=== PATIENT | female | born 1995 | race Caucasian/White ===

== ENCOUNTER 2017-07-29 08:00 | Inpatient (IN) ==
[2017-07-29] MEDS ORDERED: miSOPROStol 25 MCG TABLET PO PRN (09:08)
[2017-07-29] MEDS ORDERED: Famotidine 20 MG/2 ML VIAL IVP PRN (09:09)
[2017-07-29] MEDS ORDERED: Naloxone 0.4 MG/ML INJ IVP PRN ×2 (09:09→13:14)
[2017-07-29] MEDS ORDERED: Metoclopramide 10 MG/2 ML VIAL IVP PRN (09:12)
[2017-07-29] MEDS ORDERED: D5% in 0.45% NACL 1,000 ML IVC ONE (09:22)
[2017-07-29] MEDS ORDERED: Lidocaine -MPF 1% 2 ML VIAL ONE (09:24)
[2017-07-29 09:48] LABS: Basophils % 0.2 %; Eosinophils # 0.1 K/mcL (0.0-0.6); Hematocrit 37.2 % (35.3-44.9); Hemoglobin 12.6 g/dL (11.5-15.4); Immature Granulocytes % 0.7 % (0-4); Lymphocytes % 16.4 %; Mean Corpuscular HGB Conc 33.9 g/dL (31.6-35.5); Mean Corpuscular Hemoglobin 29.6 pg (28.0-33.3); Mean Corpuscular Volume 87.3 fL (83.0-100.0); Mean Platelet Volume 11.5 fL (9.4-12.4); Monocytes # 0.9 K/mcL (0.0-1.3); Monocytes % 7.6 %; Neutrophils # 9.2 K/mcL (1.6-8.9); Platelet Count 267 K/mcL (140-400); Red Blood Count 4.26 M/mcL (3.82-4.97); Red Cell Distribution Width 12.4 % (11.5-14.5); Segmented Neutrophils % 74.1 %
[2017-07-29] MEDS ORDERED: D5% in 0.45% NACL 1,000 ML IVC SCH (10:00)
[2017-07-29 10:11] LABS: Amphetamine Screen,Urine Negative ng/mL (Cutoff=1000); Barbiturate Screen,Urine Negative ng/mL (Cutoff=200); Benzodiazepines Screen,Urine Negative ng/mL (Cutoff=200); Cannabinoid Screen,Urine Negative ng/mL (Cutoff = 50); Cocaine Screen,Urine Negative ng/mL (Cutoff= 300); Opiate Screen,Urine Negative ng/mL (Cutoff=300); Phencyclidine Screen,Urine Negative ng/mL (Cutoff=25)
--- NOTE | 2017-07-29 10:40 | OB Labor Progress Note ---
Date of Encounter: 07/29/17 Time of Encounter: 10:37 Labor Progress Note - Subjective Subjective: Pt states is comfortable at this time - Cervix Cervix: 2/50/-2 - Heart Tones Heart Tones: 130/moderate/+accels/-decels - [place]: occasional ctx - Interventions Interventions: Finney placed. - Plan Plan: Cytotec as per order GBS negative Nubain and epidural as desired anticipate
--- NOTE | 2017-07-29 10:45 | OB/GYN History & Physical ---
Date of Encounter: 07/29/17 Time of Encounter: 10:42 Assessment and Plan (1) 39 weeks gestation of Current visit: Yes Status: Acute (2) Elective induction of labor planned Current visit: Yes Status: Acute Cytotec Place Finney Nubain and epidural as desired Anticipate History of Present Illness Chief complaint: Induction of labor HPI: Ms. Zambrano is a 22 year old female 1 P0 39+2 weeks gestation. Presents to labor and delivery for elective induction of labor for term fetus. Patient reports good movement, denies vaginal bleeding leaking of fluid or contractions. Infant was measuring small during care last measurement 16th percentile at 33 weeks. Labs: A+, rubella and varicella immune, GBS negative, all other serologies negative Past Med Surg Social Fam HX - Past Medical History Medical history: asthma Psychiatric history: no psych history - Past Surgical History Surgical History: orthopedic, other, other - Social History Smoking Status: Current every day smoker Packs per day: .1 Smokeless Tobacco Status: No Alcohol use: none Drug use: none - Family History Mother Age: 21 Family Member Ethnicity: Non- Living Status: Still Living Hx Family Cardiac Disorders: Yes (hypotension) Obstetrical History - Pregnancies : 1 Para: 0 Term: 0 : 0 Ab's: 0 Livin Medications and Allergies Vit/Iron Fumarate/FA [ Tablet] 1 each PO DAILY 07/17/17 [ History] 3 Allergy/AdvReac Type Severity Reaction Status Date / Time Penicillins Allergy Rash Verified 07/17/17 20:21 Cyclobenzaprine AdvReac See Verified 07/17/17 20:21 [From Flexeril] Comments ibuprofen [From Advil] AdvReac Headache Verified 07/17/17 20:21 Tizanidine [From Zanaflex] AdvReac See Verified 07/17/17 20:21 Comments Exam - Constitutional Constitutional: well developed, well nourished, no acute distress, average body habitus - Neck Neck exam: full ROM - Lungs Respiratory exam: CTAB - Cardiovascular Cardiovascular exam: RRR - Abdomen Abdomen: Present: bowel sounds normal, gravid, non tender - Extremities Extremities exam: normal capillary refill, normal inspection - Vagina Vagina: Present: normal moisture - Cervix Dilation: 2 Effacement: 50 Station: -2 - Uterus Uterus exam: Present: normal size, normal contour Results Result Diagrams: 07/29/17 09:36 Abnormal lab results WBC 12.4 K/mcL (4.3-11.1) H 07/29/17 09:36 Neutrophils # 9.2 K/mcL (1.6-8.9) H 07/29/17 09:36 All other labs normal. - VTE Reasons for not Prescribing Prophylaxis: Treatment not Indicated - Low risk for VTE
[2017-07-29] MEDS ORDERED: *HR* Nalbuphine 20 MG/ML AMPUL IVP PRN (10:53)
[2017-07-29] MEDS ORDERED: Ondansetron 4 MG/2 ML VIAL IVP PRN ×2 (10:54→13:14)
--- NOTE | 2017-07-29 11:02 | Anesthesia Evaluation PreOp ---
Date of Encounter: 07/29/17 Time of Encounter: 10:58 - Past History Planned Operation: BUNNY Pulmonary History: Smoker, Pack/yr (6pk/yr) TIE INSPECTOR History: Denies Any Significant HX Other Medical History: GERD (with ) Anesthesia History: No Prior Anesthetic Complications, Past Anesthesia (Rotator cuff repair, tonsillectomy, wisdom teeth extraction.) : Yes Alcohol Use: none Drug use: none Medications and Allergies Vit/Iron Fumarate/FA [ Tablet] 1 each PO DAILY 07/17/17 [ History] 3 Allergy/AdvReac Type Severity Reaction Status Date / Time Penicillins Allergy Rash Verified 07/17/17 20:21 Cyclobenzaprine AdvReac See Verified 07/17/17 20:21 [From Flexeril] Comments ibuprofen [From Advil] AdvReac Headache Verified 07/17/17 20:21 Tizanidine [From Zanaflex] AdvReac See Verified 07/17/17 20:21 Comments - Meds/Allergy Pre-op Review Medications Reviewed: Yes Allergies Reviewed: Yes Beta Blockers on Current Med List: No Anesthesia Results - Labs 07/29/17 09:36 Anesthesia Exam BP 138/68 T 97.7 P 104 R 18 Height: 5'6" Weight: 92.3kg NPO (# of Hours): 4 Pain Scale: 4 (with contractions) Pain Scale Used: Numeric (1 - 10) - HEENT Pupil (Motor): Pupils equal Mallampati: II Teeth: Normal Oral Opening: Greater than 3 - TIE INSPECTOR LOC: Oriented TIE INSPECTOR Motor: Normal RUE, Normal LUE, Normal RLE, Normal LLE, Normal Face TIE INSPECTOR Sensory: Normal: RUE, LUE, RLE, LLE, Face - Cardiac Rhythm: Regular Murmur: None JVD: No Carotid Bruit: No - Pulmonary Breath Sounds: bilateral Clear Respiratory Effort: Symmetrical Anesthesia Assess/Plan ASA Score: 2 Modified Frederick Scale for Level of Consciousness: Cooperative, oriented, and tranquil Anesthetic Plan: Regional Autologous Blood: No Monitoring Plan: Standard Monitors Recovery Plan: Other
[2017-07-29] MEDS ORDERED: Ringers Solution, Lactated 1,000 ML ONE ×2 (12:50→13:53)
[2017-07-29] MEDS ORDERED: Bupivacaine-MPF 0.25% 10 ML VIAL EP ONE (13:14)
[2017-07-29] MEDS ORDERED: EPHEDrine 50 MG/ML VIAL IVP PRN (13:14)
[2017-07-29] MEDS ORDERED: *HR* FentaNYL (PF) 100 MCG/2 ML VIAL EP ONE (13:14)
[2017-07-29] MEDS ORDERED: Epidural Premix (fent/bupiv) 110 ML EP SCH (13:15)
[2017-07-29] MEDS ORDERED: Epidural Premix (fent/bupiv) 110 ML EP ONE ×2 (13:24→19:21)
--- NOTE | 2017-07-29 14:05 | Anesthesia Procedures ---
Date of Encounter: 07/29/17 Time of Encounter: 13:28 Procedures: Anesthesia - Epidural/Spinal Patient ID/Chart reviewed: Yes Patient examined: Yes OB Eval: Gestational age: 39 OB Eval: : 1 OB Eval: Hx Para: 0 OB Eval: Dilated at (cm): 3 OB Eval: Contractions: Non-stressed pattern Consent Obtained: Yes Supplemental Oxygen: None/Room Air Site Prep: Aseptic Technique, Sterile prep and drape, Povidone-Iodine 1% Patient position: upright Local Anesthetic: Lidocaine 1% Amount of Local Anesthetic used: 3 Touhy Needle Gauge: 18 Touhy Needle Depth (cm): 6 Catheter Depth at Skin (cm): 15 Test Dose (1.5% Lido + Epi): Volume given (mls): 3 Test Dose Result: Negative Loading Dose: 0.25% Marcaine (mls): 10 Loading Dose: Fentanyl (mcg): 100 Loading Dose Administered: Thru Catheter Infusion Med: 0.125% Bupivacaine w/ 2 mcg/ml Fentanyl Infusion Rate (mls/hr): [address]: Tegaderm, Tape Interspace Used: L4-L5 Loss of Resistance (CLAUDIA): Yes Blood: No CSF: No Paresthesia: No Procedure: BUNNY placed 1st pass in upright position without any immediate noted complications. VSS throughout. FHT stable throughout Vitals + FHT's: 1328 BP 134/83 P 99 R 18 1357 BP 112/62 P 91 R 16
--- NOTE | 2017-07-29 15:02 | OB Labor Progress Note ---
Date of Encounter: 07/29/17 Time of Encounter: 15:00 Labor Progress Note - Subjective Subjective: Pt resting comfortable with epidural - Cervix Cervix: 4/50/-2 - Heart Tones Heart Tones: 135/moderate/+accels/-decels - [place]: q2-3 - Interventions Interventions: AROM clear fluid - Plan Plan: Start pitocin per policy Anticipate
[2017-07-29] MEDS ORDERED: Oxytocin 20 units/ LR 1000 mL 20 UNIT/1,000 ML BAG IVC SCH (15:30)
[2017-07-29] MEDS ORDERED: Oxytocin 20 units/ LR 1000 mL 20 UNIT/1,000 ML BAG IVC ONE (15:36)
--- NOTE | 2017-07-29 18:36 | OB Labor Progress Note ---
Date of Encounter: 07/29/17 Time of Encounter: 18:34 Labor Progress Note - Subjective Subjective: Pt states she is having back pain and rectal pressure. - Cervix Cervix: 4-5/75/-2 - Heart Tones Heart Tones: 12/moderate/+accels/-decels - [place]: IUPC placed 2-3 - Interventions Interventions: IUPC placed without resistance, blood tinged fluid returned through introducer. and FSE placed - Plan Plan: Continue to increase pitocin per policy Maintain epidural Use peanut ball Anticipate
[2017-07-29] MEDS ORDERED: Famotidine 20 MG/2 ML VIAL ONE (19:20)
[2017-07-29] MEDS ORDERED: ROPIVACAINE HCL/PF 0.5% 30 ML VIAL ONE (19:39)
--- NOTE | 2017-07-29 22:58 | OB Labor Progress Note ---
Date of Encounter: 07/29/17 Time of Encounter: 22:54 Labor Progress Note - Subjective Subjective: pt comfortable with epidural - Cervix Cervix: 5/75/-1 per RN - Heart Tones Heart Tones: 125/moderate/+accels/-decels - [place]: IUPC 2-5 - Plan Plan: Continue to increase pitocin per policy- current dose 10 Use peanut ball Anticipate
--- NOTE | 2017-07-29 23:35 | Anesthesia Progress Note ---
Date of Encounter: 07/29/17 Time of Encounter: 19:45 Anesthesia Note - Note Note: Pt complaining in pain in mid back and stomach at 8 of 10 on pain scale with contractions. Epidural pump had been increased to 17 from 15 at 1900 without relief. Ropivicaine 0.5% 8ml administered via epidural catheter to provide additional pain relief. Followed up at 1999. Pt comfortable at this time.
[2017-07-30] MEDS ORDERED: Epidural Premix (fent/bupiv) 110 ML EP ONE ×2 (00:27→06:58)
[2017-07-30] MEDS ORDERED: *HR* FentaNYL (PF) 100 MCG/2 ML VIAL ONE (03:51)
--- NOTE | 2017-07-30 04:26 | Anesthesia Progress Note ---
Date of Encounter: 07/30/17 Time of Encounter: 04:20 Anesthesia Note - Note Note: 07/30/17 04:22 Pt complaining of back pain 8 of 10. Pt unable to move legs at this time. Level presenting at T8. Epidural bolus Ropivicaine 0.5% 5ml with Fentanyl 100mcg administered. BP 115/55, P 109. Will follow up.
--- NOTE | 2017-07-30 05:20 | OB Labor Progress Note ---
Date of Encounter: 07/30/17 Time of Encounter: 05:18 Labor Progress Note - Subjective Subjective: Pt comfortable with epidural but has had multiple bolus doses. - Vital Signs Vital Signs: 121/59 HR 116 T. 98.6 - Cervix Cervix: 5/90/-2 - Heart Tones Heart Tones: 145/minimal/-accels/variables and early decels Cat II - [place]: IUPC. 1.5 - Interventions Interventions: Frequent repositioning with peanut ball. Pitocin off and restart at 0630. - Plan Plan: Stop pitocin restart after 1 hour if tracing improves 500 LR bolus Change fluids to LR
[2017-07-30] MEDS ORDERED: Ringers Solution, Lactated 1,000 ML ONE ×2 (05:23→10:27)
--- NOTE | 2017-07-30 08:37 | OB Labor Progress Note ---
Date of Encounter: 07/30/17 Time of Encounter: 08:35 Labor Progress Note - Subjective Subjective: Comfortable, feeling some pressure - Cervix Cervix: 6/90/-1 - Heart Tones Heart Tones: early and variable decels noted. fair beat to beat variability - [place]: uc's q 3-4 min - Plan Plan: D/w pt slow progress and possible need for . No s/sx's of infection, will start Clindamycin. Pt desires to cont. expectant mgmt.
[2017-07-30] MEDS ORDERED: Clindamycin 900 MG/50 ML 900 MG/50 ML IV.SOLN IVPB SCH (09:00)
[2017-07-30] MEDS ORDERED: 0.9 % Sodium Chloride 1,000 ML ONE (09:55)
--- NOTE | 2017-07-30 10:03 | OB Labor Progress Note ---
Date of Encounter: 07/30/17 Time of Encounter: 09:59 Labor Progress Note - Subjective Subjective: Patient is resting comfortably. - Cervix Cervix: 8\100\+1 - Heart Tones Heart Tones: Variable decelerations noted. Fair [id number]-pr-[id number] variability. - [place]: UC's 1.5-4 minutes irregular with sporadic coupling. - Interventions Interventions: Reduction in pitocin to 2; amnioinfusion 300 bolus with subsequent 100mls/hr rate. - Plan Plan: We further discussed patient's potential need for . Patient had no signs or symptoms of infection. Clindamycin running due to prolonged ROM. As patient is showing cervical changes, we decided to reduce pitocin secondary to variable and possible late decelerations on the FHT. We have also started an amnioinfusion. If FHT continues to produce variable and late decelerations, we will proceed to section.
[2017-07-30] MEDS ORDERED: Ringers Solution, Lactated 250 ML IVC PRN (10:28)
--- NOTE | 2017-07-30 12:09 | OB/GYN Procedure Note ---
Delivery - Delivery Date: 07/30/17 Provider: Sony Milian Intrapartum events: none Delivery induction: misoprostol Delivery monitor: internal FHT, internal uterine Anesthesia: epidural - (s) A Infant Delivery Date: 07/30/17 Delivery Time: 11:41 Presentation: vertex Position: DONNA Route of delivery: vacuum extraction Gender: Male Viability: Viable Pounds: 5 Ounces: 14 at 1 minute: 2 at 5 mins: 2 at 10 mins: 6 (15 min 8) Shoulder Dystocia: not encountered Specimens collected: venous cord gases Placenta: spontaneous Cord: nuchal cord, 3 umbilical vessels - Repair Episiotomy: none Laceration Description: Labial - Complications Delivery complications: none - Disposition Mom disposition: stable in LDR [place] disposition: taken to nursery - Comments Comments: Patient progressed to complete dilatation and was pushing and began having deep variable decelerations. At this time I was called to attend delivery for vacuum extraction. Patient was completely dilated at +3 station and bladder was emptied. Patient had excellent maternal effort with pushing. Vacuum was applied with pressure of 550 mmHg and infant was delivered from right occiput anterior presentation. After delivery of the head there was a tight nuchal cord which the was delivered through. Time of delivery infant was quite flaccid with little respiratory effort. Cord was immediately clamped and cut and was taken to the warmer where resuscitative measures were began. Apgars were determined to be 21 minute to a 5 minutes 6 at 10 minutes. Respiratory therapy and tele rn was called emergently to respond to state of efforts with bag mask ventilation. Of note patient's membranes were ruptured for a prolonged period of time she was given clindamycin 900 mg this morning approximately 8:30 AM. At time of delivery the amniotic fluid was malodorous. Patient was afebrile. Placenta was delivered spontaneously there was a right labial laceration that was repaired with several interrupted sutures with 3-0 Vicryl. Blood loss was 200 mL mother recovered in delivery room was taken nursery.
[2017-07-30] MEDS ORDERED: Measles/Mumps/Rubella Vacc 0.5 ML VIAL SQ PRN (15:07)
[2017-07-30] MEDS ORDERED: Acetaminophen 325 MG TABLET PO PRN (15:07)
[2017-07-30] MEDS ORDERED: Oxytocin 20 units/ LR 1000 mL 20 UNIT/1,000 ML BAG IVC SCH (15:07)
[2017-07-30] MEDS ORDERED: Rho Immune Globulin 1,500 UNIT SYRINGE IM PRN (15:07)
[2017-07-31 08:18] LABS: Basophils % 0.2 %; Eosinophils # 0.2 K/mcL (0.0-0.6); Eosinophils % 1.5 %; Hematocrit 30.9 % (35.3-44.9); Immature Granulocytes % 0.7 % (0-4); Lymphocytes # 2.1 K/mcL (0.6-4.6); Lymphocytes % 15.7 %; Mean Corpuscular Hemoglobin 29.9 pg (28.0-33.3); Monocytes # 0.9 K/mcL (0.0-1.3); Monocytes % 6.4 %; Neutrophils # 10.3 K/mcL (1.6-8.9); Platelet Count 214 K/mcL (140-400); Red Blood Count 3.51 M/mcL (3.82-4.97); Red Cell Distribution Width 12.7 % (11.5-14.5); Segmented Neutrophils % 75.5 %
[2017-07-31 08:19] LABS: Hemoglobin 10.5 g/dL (11.5-15.4)
[2017-07-31 08:38] VITALS: BP 107/67
--- NOTE | 2017-07-31 08:42 | Discharge Summary ---
Date of Encounter: 07/31/17 Time of Encounter: 08:30 - Discharge Diagnosis (1) Vaginal delivery Priority: Primary Status: Acute (2) 39 weeks gestation of Priority: Primary Status: Acute (3) anemia Priority: Primary Status: Acute - Discharge Medications Prescriptions: Acetaminophen [Tylenol] 650 mg PO Q6HR PRN #60 tablet PRN Reason: Mild Pain Docusate [Colace] 100 mg PO BID #30 capsule Ferrous Sulfate 325 mg PO DAILY #30 tablet Home Medications: Vit/Iron Fumarate/FA [ Tablet] 1 each PO DAILY 07/17/17 [ History] Acetaminophen [Tylenol] 650 mg PO Q6HR PRN #60 tablet 07/31/17 [Rx] Docusate [Colace] 100 mg PO BID #30 capsule 07/31/17 [Rx] Ferrous Sulfate 325 mg PO DAILY #30 tablet 07/31/17 [Rx] Allergies/Adverse Reactions: 3 Allergy/AdvReac Type Severity Reaction Status Date / Time chocolate flavor Allergy See Verified 07/30/17 16:49 Comments Penicillins Allergy Rash Verified 07/17/17 20:21 Cyclobenzaprine AdvReac See Verified 07/17/17 20:21 [From Flexeril] Comments ibuprofen [From Advil] AdvReac Headache Verified 07/17/17 20:21 Tizanidine [From Zanaflex] AdvReac See Verified 07/17/17 20:21 Comments peanuts AdvReac See Uncoded 07/30/17 16:50 Comments Data Procedures and tests throughout hospitalization: Laboratory Tests 07/29/17 07/29/17 07/31/17 09:00 09:36 07:33 WBC 12.4 H 13.7 H RBC 4.26 3.51 L Hgb 12.6 10.5 L D Hct 37.2 30.9 L MCV 87.3 88.0 MCH 29.6 29.9 MCHC 33.9 34.0 RDW 12.4 12.7 Plt Count 267 214 MPV 11.5 12.0 Immature Gran % 0.7 0.7 Seg Neutrophils % 74.1 75.5 Lymphocytes % 16.4 15.7 Monocytes % 7.6 6.4 Eosinophils % 1.0 1.5 Basophils % 0.2 0.2 Neutrophils # 9.2 H 10.3 H Lymphocytes # 2.0 2.1 Monocytes # 0.9 0.9 Eosinophils # 0.1 0.2 Basophils # 0.0 0.0 Urine Opiates Screen Negative Ur Barbiturates Screen Negative Ur Phencyclidine Scrn Negative Ur Amphetamines Screen Negative U Benzodiazepines Scrn Negative Urine Cocaine Screen Negative U Marijuana (THC) Screen Negative Labs on day of discharge: Labs from last 24 hours 07/31/17 07:33 WBC 13.7 H RBC 3.51 L Hgb 10.5 L D Hct 30.9 L MCV 88.0 MCH 29.9 MCHC 34.0 RDW 12.7 Plt Count 214 MPV 12.0 Immature Gran % 0.7 Seg Neutrophils % 75.5 Lymphocytes % 15.7 Monocytes % 6.4 Eosinophils % 1.5 Basophils % 0.2 Neutrophils # 10.3 H Lymphocytes # 2.1 Monocytes # 0.9 Eosinophils # 0.2 Basophils # 0.0 Date of admission: 07/29/17 08:22 Primary care physician: PCP NONE Consults: 07/30/17 15:07 Consult to Director Of Curriculum And Instruction [CONS] Routine Comment: Vaginal delivery, consult needed Discharging clinician: Nino Trujillo Anticipated date of discharge: 07/31/17 - Patient Status Disposition: Home, Self-Care Condition: Good Functional capacity at discharge: independent ambulation Overall status at discharge: patient is progressing back to baseline - Discharge Instructions Instructions: Anemia (GEN) - Diet and Activity Activity: resume usual activities as tolerated Diet: regular diet Hospital Course Reason for admission: induction of labor Delivery: Episiotomy: none Laceration: other (Right labial laceration) Other procedures: none complications: none Discharge diagnosis: IUP at term delivered [place] baby: male Hospital course: Ms. Zambrano is a 22 year old female that presented 39+2 weeks gestation to labor and delivery for elective induction of labor for term fetus. Patient reported good movement, denied vaginal bleeding leaking of fluid or contractions. was measuring small during care last measurement 16th percentile at 33 weeks. Patient progressed to complete dilatation and was pushing and began having deep variable decelerations. At that time the attending physician was called to attend delivery for vacuum extraction. Patient was completely dilated at +3 station and bladder was emptied. Patient had excellent maternal effort with pushing. Vacuum was applied with pressure of 550 mmHg and was delivered from right occiput anterior presentation. After delivery of the head there was a tight nuchal cord which the was delivered through. Time of delivery was quite flaccid with little respiratory effort. Cord was immediately clamped and cut and infant was taken to the warmer where resuscitative measures were began. Apgars were determined to be 21 minute to a 5 minutes 6 at 10 minutes. Respiratory therapy and partner marketing manager was called emergently to respond to state of efforts with bag mask ventilation. Of note patient's membranes were ruptured for a prolonged period of time she was given clindamycin 900 mg this morning approximately 8:30 AM. At time of delivery the amniotic fluid was malodorous. Patient was afebrile. Placenta was delivered spontaneously there was a right labial laceration that was repaired with several interrupted sutures with 3-0 Vicryl. Blood loss was 200 mL mother recovered in delivery room infant was taken nursery. When seen today, patient says she is doing well and in good mood. Baby is currently in the nursery for special care. She is bottle feeding her due to tenderness in the breasts. She says her vaginal bleeding is light and has improved since the delivery. She admits to minor abdomina discomfort when she walks, stating a 4/ 10 on the pain scale, but says she is very comfortable when resting. She denies any fever, chills, chest pain, shortness of breath, nausea, or vomiting. She will be discharged today, but will be staying as a guest since her baby is in the nursery. She has a follow-up appointment with Dr. Farrell on 08/27/17. Delivery - Delivery Date: 07/30/17 Provider: Sony Milian Intrapartum events: none Delivery induction: misoprostol Delivery monitor: internal FHT, internal uterine Anesthesia: epidural - Infant (s) A Infant Delivery Date: 07/30/17 Infant Delivery Time: 11:41 Presentation: vertex Position: DONNA Route of delivery: vacuum extraction Gender: Male Viability: Viable Pounds: 5 Ounces: 14 at 1 minute: 2 at 5 mins: 2 at 10 mins: 6 (15 min 8) Shoulder Dystocia: not encountered Specimens collected: venous cord gases Placenta: spontaneous Cord: nuchal cord, 3 umbilical vessels - Repair Episiotomy: none Laceration Description: Labial - Complications Delivery complications: none - Disposition Mom disposition: stable in LDR disposition: taken to nursery Time Attestation: Total time spent providing and/or coordinating discharge services: Exam - Constitutional Vitals: Temp Pulse Resp BP Pulse Ox 98.4 F 98 16 107/67 95 07/31/17 08:15 07/31/17 08:15 07/31/17 08:15 07/31/17 08:15 07/31/17 03:47 General appearance IM: A&O X 3, pleasant, no acute distress, answers questions appropriately - Respiratory Respiratory exam: Present: CTAB - Cardiovascular Cardiovascular exam IM: Present: RRR, +S1, +S2 - GI/Abdominal GI/Abdominal exam IM: normal bowel sounds, soft, tenderness (Minor tenderness in lower quadrants with deep palpation.) - Uterine Tone: Firm - Extremities Exam Extremities exam IM: Present: full ROM, normal capillary refill, normal inspection, radial pulses palpable and symmetrical. Absent: calf tenderness, cyanotic, pedal edema Additional comments: Pedal pulses intact and symmetrical bilaterally. - Neurological Exam Neurological exam: reflexes normal, no focal deficits - Attending Attestation I examined this patient and my medical decision-making was reviewed with the Resident Physician. I agree with the documented findings, disposition and treatment plan as described except to the extent set forth below. Erica Escobedo DO
[2017-07-31] MEDS ORDERED: Prenatal Vit/FA 1 EACH TABLET PO SCH (09:00)
== END 2017-07-31 10:55 | disposition home or self-care (01) | DRG 560 ==
LOC: 1NENULAB 08:22 → 1NENUOBS 07-30 14:52
PROVIDERS: ADMIT Obstetrics & Gynecology; ATTEND Obstetrics & Gynecology